=== PATIENT | female | born 1950 | race Caucasian/White ===

== ENCOUNTER 2023-04-04 05:38 | Day surgery (SDC) | payer OTHER ==
[2023-04-04] MEDS: Ringers Lactate 1,000 ML IV ONE (05:55)
[2023-04-04] MEDS ORDERED: ONDANSETRON 4 MG/2 ML VIAL ONE (07:02)
[2023-04-04] MEDS ORDERED: LIDOCAINE 2% MPF 5 ML VIAL ONE (07:02)
[2023-04-04] MEDS ORDERED: FENTANYL CITR 100 MCG/2 ML ONE (07:02)
[2023-04-04] MEDS ORDERED: propofoL 200 MG/20 ML VIAL IV ONE (07:02)
[2023-04-04] MEDS ORDERED: BUPIVACAINE 0.25% PF 10 ML VIAL ONE (07:03)
[2023-04-04] MEDS ORDERED: LIDOCAINE 1% MPF 10 ML AMPULE ONE (07:04)
[2023-04-04] MEDS ORDERED: EPHEDRINE SULF 50 MG/ML VIAL ONE (07:41)
[2023-04-04] MEDS: CEFAZOLIN SODIUM 1 GM/VIAL ONE (07:42)
[2023-04-04] MEDS ORDERED: dexAMETHasone 4 MG/ML VIAL ONE (07:48)
--- NOTE | 2023-04-04 08:40 | RAD REPORT ---
EXAM DESCRIPTION: RAD - Fluoroscopy <1 Hour - 04/04/2023 8:33 am CLINICAL HISTORY: 2ND HAMMER TOE FUSION COMPARISON: No comparisons FINDINGS/IMPRESSION: Two intraoperative fluoroscopic images were submitted showing fusion at the sec ond PIP joint. No radiologist was available for the procedure, nor will any image interpretation be provided. Yesica guaamn refer to the procedural report for additional details Fluoro time: 0 minutes Cumulative dose: 0.05 mGy
[2023-04-04] MEDS: HYDROMORPHONE HCL 1 MG/ML INJ ONE (09:55)
[2023-04-04 11:30] VITALS: BP 148/64; TEMP 97.4; O2SAT 99
== END 2023-04-04 10:50 | disposition home or self-care (01) ==
LOC: OR 05:38
PROVIDERS: ATTEND Podiatrist Foot & Ankle Surgery
PROC: 0SGP04Z Fusion of Right Toe Phalangeal Joint with Internal Fixation Device, Open Approach (ICD-10-PCS; principal; 2023-04-04 07:15)
DX: M20.41 Other hammer toe(s) (acquired), right foot (principal); I10 Essential (primary) hypertension; I25.10 Atherosclerotic heart disease of native coronary artery without angina pectoris; J44.9 Chronic obstructive pulmonary disease, unspecified; I50.9 Heart failure, unspecified; N18.30 Chronic kidney disease, stage 3 unspecified; E03.9 Hypothyroidism, unspecified; E66.9 Obesity, unspecified; K21.9 Gastro-esophageal reflux disease without esophagitis; M19.90 Unspecified osteoarthritis, unspecified site
CPT/HCPCS: 28285; J2704; J1100; J2001; J3010; J1170; J2405; J7120; J0690; 76000

== ENCOUNTER 2023-09-26 06:05 | Day surgery (SDC) | payer OTHER ==
[2023-09-24 12:08] LABS: Absolute Eosinophils 0.1 K/uL (0-0.5); Absolute Lymphocytes (CBC) 1.6 K/uL (0.7-4.9); Absolute Monocytes 0.5 K/uL (0.1-1.3); Absolute Neutrophil 3.7 K/uL (1.8-8.0); Basophils % 0.4 % (0-1.3); Eosinophils % 1.9 % (0-4.4); Hematocrit 42.4 % (36.0-45.0); Hemoglobin 13.8 g/dL (12.0-15.0); Lymphocytes % 26.5 % (15.3-44.8); MCH 33.7 pg (27.0-35.0); MCHC 32.6 g/dL (32.0-36.0); MCV 103.4 fL (80-100); MPV 9.7 fL (7.6-11.3); Monocytes % 9.2 % (3.3-12.3); Platelets 196 thou/uL (152-406); Red Cell Distribution Width 12.4 % (12.1-15.2)
[2023-09-24 12:09] LABS: Anion Gap 8.7 mEq/L (5.0-15.0); Potassium 4.7 mEq/L (3.5-5.1)
--- NOTE | 2023-09-24 12:28 | EKG ---
Test Date: 2023-09-24 Test Time: 11:20:03 Mainframe Developer: TAMMI MEASUREMENT RESULTS: Intervals: Rate: 84 NJ: 170 QRSD: 82 QT: 358 QTc: 423 Glide: P: 48 NJ: 170 QRS: -7 T: 46 INTERPRETIVE STATEMENTS: Normal sinus rhythm Normal ECG Compared to ECG 06/15/2010 19:12:49 Myocardial infarct finding no longer present T-wave abnormality no longer present Possible ischemia no longer present Electronically Signed On 09-24-23 12:28:25 CDT by Carlo Ball
[2023-09-24 12:33] LABS: Blood Morphology Comment NOT SEEN (NOT SEEN); Platelet Estimate ADEQ; White Blood Cell Scan OK (OK)
[2023-09-26] MEDS ORDERED: Ringers Lactate 1,000 ML IV ONE (06:29)
[2023-09-26] MEDS ORDERED: LIDOCAINE 1% MPF 30 ML VIAL ONE (07:19)
[2023-09-26] MEDS ORDERED: LIDOCAINE 1% MPF 10 ML AMPULE ONE (07:20)
[2023-09-26] MEDS ORDERED: LIDOCAINE 1% MPF 5 ML VIAL ONE (07:20)
[2023-09-26] MEDS ORDERED: propofoL 200 MG/20 ML VIAL IV ONE (07:20)
[2023-09-26] MEDS ORDERED: MIDAZOLAM HCL 2 MG/2 ML INJ ONE (07:21)
[2023-09-26] MEDS: CEFAZOLIN SODIUM 1 GM/VIAL ONE (07:38)
[2023-09-26] MEDS ORDERED: ONDANSETRON 4 MG/2 ML VIAL ONE (07:50)
[2023-09-26] MEDS ORDERED: dexAMETHasone 4 MG/ML VIAL ONE (07:50)
[2023-09-26] MEDS: BUPIVACAINE 0.25% PF 10 ML VIAL ONE (08:40)
[2023-09-26] MEDS: HYDROMORPHONE HCL 1 MG/ML INJ ONE (09:00)
[2023-09-26] MEDS: FENTANYL CITR 100 MCG/2 ML ONE ×2 (09:07→09:12)
[2023-09-26] MEDS: HYDROCODONE/APAP 5/325 MG TAB ONE (10:15)
--- NOTE | 2023-09-26 11:53 | RAD REPORT ---
EXAM DESCRIPTION: RAD - Fluoroscopy <1 Hour - 09/26/2023 10:30 am CLINICAL HISTORY: 2ND HAMMER TOE REPAIR COMPARISON: None available. FINDINGS: Two Images were sent to PACS, documenting fluoroscopy use during an image guided hammertoe repair proceed. No radiologist was available for the procedure, nor will any image interpretation he provided. Please refer to the procedural report for additional details. Fluoroscopy time: Less than 0.1 Minutes. IMPRESSION: Documentation of fluoroscopy utilization as above.
[2023-09-26 12:34] VITALS: BP 124/71; TEMP 97
[2023-09-26 12:37] VITALS: O2SAT 98
== END 2023-09-26 11:13 | disposition home or self-care (01) ==
LOC: PRE 06:05 → OR 11:13
PROVIDERS: ATTEND Podiatrist Foot & Ankle Surgery
PROC: 0L8V0ZZ Division of Right Foot Tendon, Open Approach (ICD-10-PCS; principal; 2023-09-26 07:30)
DX: M20.42 Other hammer toe(s) (acquired), left foot (principal); E66.9 Obesity, unspecified; J45.909 Unspecified asthma, uncomplicated; I10 Essential (primary) hypertension; E78.5 Hyperlipidemia, unspecified; M19.90 Unspecified osteoarthritis, unspecified site
CPT/HCPCS: 28285; 93005; 85025; 80048; 36415; 73721; J2704; J2001; J3010 ×2; J1170; J2405; J7120; J0690; 76000; J1100; J2250